=== PATIENT | male | born 1970 | race Caucasian/White ===

== ENCOUNTER 2020-08-04 17:15 | Emergency (ER) | payer SELFPAY ==
--- NOTE | ~2020-08-04 | XR_ITS ---
XR tibia fibula LT 2V DATE: 08/04/2020 18:08 INDICATION: Anterior ankle laceration TECHNIQUE: AP and lateral views COMPARISON: 10/10/2012 left foot FINDINGS: There is an old healed distal tibial fracture. Old healed distal fifth metatarsal shaft fracture deformity Mild plantar and minimal posterior calcaneal enthesopathy. No recent fracture or dislocation. No bone destruction is evident. There is a focal area of irregularity at the skin at the anterior aspect of the left lower leg; no ra diopaque foreign body is noted. IMPRESSION: Anterior lower leg laceration; no radiopaque foreign body Old healed distal tibial and distal fifth metatarsal shaft fractures Reviewed, dictated and finalized at location A.
[2020-08-04 17:18] VITALS: BP 130/94; PULSE 87; RESP 18; TEMP 36.8; O2SAT 100
--- NOTE | 2020-08-04 17:55 | ED.WOUNDLAC ---
HPI - Wound/Laceration General Chief Complaint: Wound/Laceration Stated Complaint: Leg vs Chainsaw Time Seen by Provider: 08/04/20 17:26 Source: patient Mode of arrival: ambulatory Limitations: no limitations History of Present Illness HPI narrative: This is a 49-year-old male that presents to the emergency department for laceration to left lower extremity sustained just prior to arrival. Reports he was using a chain saw to cut down a stump. Sustained a laceration to the leg. He is not up-to-date on tetanus. Denies decreased range of motion or numbness. Related Data Allergies Allergy/AdvReac Type Severity Reaction Status Date / Time No Known Allergies Allergy Verified 08/04/20 17:36 Review of Systems Review of Systems: Narrative: CONSTITUTIONAL: Denies fever SKIN: Reports laceration NEUROLOGIC: Denies numbness All systems reviewed & are unremarkable except as noted in HPI and below PMFSH Surgical History Surgical History (Updated 08/04/20 @ 17:56 by Janet Reed PA-C) History of appendectomy Family History Family History (Updated 10/10/12 @ 11:30 by DOCTOR UNKNOWN) Other Hypertension Social History Social History Alcohol intake: current Exam Narrative: Exam Narrative: GENERAL: Well-appearing, well-nourished, and in no acute distress. HEAD: Normocephalic, atraumatic. EYES: EOMI. EXTREMITIES: No edema or obvious deformity. 3.5 cm linear laceration into subcutaneous tissue to the left anterior ankle, does appear there is a small portion of a tendon that has been lacerated, likely the tibialis anterior. Patient does have normal range of motion in the left ankle and toes. Normal DP pulses, normal sensation SKIN: Warm, dry, no rash. NEURO: No focal deficits. Alert and oriented x3. PSYCH: Normal mood and affect Course Consultations Consultation #1: Spoke with Dr. Aguila about patient and workup. Patient is to be thoroughly irrigated and started on antibiotics. Tetanus will be updated. May suture or staple the skin. Patient will be placed in a short leg posterior to allow for healing. Patient may follow-up with primary care doctor Date: 08/04/20 Time: 20:00 Vital Signs Vital signs: Vital Signs Temperature 98.2 F 08/04/20 17:18 Pulse Rate 87 08/04/20 17:18 Respiratory Rate 18 08/04/20 17:18 Blood Pressure 130/94 H 08/04/20 17:18 Pulse Oximetry 100 08/04/20 17:18 Temperature 98.2 F 08/04/20 17:18 Pulse Rate 68 08/04/20 19:48 Respiratory Rate 16 08/04/20 19:48 Blood Pressure 130/89 08/04/20 19:48 Pulse Oximetry 100 08/04/20 19:48 MDM - Wound/Laceration MDM Narrative Medical decision making narrative: Patient presents to the ER for laceration to left anterior ankle sustained just prior to arrival. Left tib-fib x-ray without acute osseous abnormalities. Wound was thoroughly irrigated. Patient updated on tetanus. Patient also given dose of IM Ancef in the ED. Patient updated on tetanus. There does appear to be a small portion of tendon involved, likely the anterior tibialis. Patient does have normal range of motion in the ankle and toes. Spoke with Dr. Aguila about patient and workup. After patient is thoroughly irrigated, may suture or staple the skin. Patient will be placed in a short leg posterior to allow for healing. Patient may follow-up with primary care doctor for further care. Patient and family educated on care of wound Imaging Data Radiologist's impression: ITS Impressions Tibia/Fibula X-Ray 08/04/20 18:14 IMPRESSION: Anterior lower leg laceration; no radiopaque foreign body Old healed distal tibial and distal fifth metatarsal shaft fractures Critical Care Time Critical Care Time Critical Care Time: No Discharge Plan Discharge Clinical Impression: Laceration Patient Disposition: Home, Self-Care Condition: Stable Instructions: Antibiotic Form, Care For Your Stitches (ED), Laceration (ED) Jayleeno
[2020-08-04] MEDS: TETANUS,DIPHTHERIA,AC PERTUSSIS ADULT (0.5 ML) BOOSTRIX IM (18:28)
[2020-08-04 19:48] VITALS: BP 130/89; PULSE 68; RESP 16; O2SAT 100
--- NOTE | 2020-08-04 20:21 | PC.NURSE ---
Sterile water used for Ancef reconstitution.
[2020-08-04] MEDS: ceFAZolin SODIUM 1 GM VIAL IM (20:30)
[2020-08-04 21:04] VITALS: BP 129/77; PULSE 65; RESP 14; O2SAT 99
== END 2020-08-04 21:06 | disposition home or self-care (01) ==
PROVIDERS: Emergency Provider Emergency Medicine
DX: S91.012A Laceration without foreign body, left ankle, initial encounter (principal); Z23 Encounter for immunization; W29.3XXA Contact with powered garden and outdoor hand tools and machinery, initial encounter
CPT/HCPCS: 12002; 29515; 73590; 90471; 90715; 96372; 99283; J0690